=== PATIENT | male | born 1980 | race African-American/Black ===

== ENCOUNTER 2020-11-18 09:29 | Outpatient (REF) | payer MEDICAID, SELFPAY | END 2020-11-18 09:30 | disposition home or self-care (01) | LOC: HO.LAB 09:29 | PROVIDERS: Visit Provider Internal Medicine | DX: Z20.828 Contact with and (suspected) exposure to other viral communicable diseases (principal) | CPT/HCPCS: C9803; U0003 ==

== ENCOUNTER 2021-07-30 12:30 | Outpatient (REF) | payer MEDICAID, SELFPAY ==
[2021-07-30 13:11] LABS: COVID-19 Test Positive (Negative)
== END 2021-07-30 12:31 | disposition home or self-care (01) ==
LOC: HO.LAB 12:30
PROVIDERS: Visit Provider Internal Medicine
DX: Z20.822 Contact with and (suspected) exposure to COVID-19 (principal)
CPT/HCPCS: 36415; 87635; C9803